=== PATIENT | male | born 1985 ===

== ENCOUNTER 2020-02-15 20:51 | Emergency (ER) | payer SELFPAY ==
[2020-02-15 20:55] VITALS: BP 133/76; PULSE 93; RESP 17; TEMP 37; O2SAT 95; BMI 52.9
--- NOTE | 2020-02-15 21:47 | W.ED.GENADLT ---
HPI - General Adult General: Chief complaint: General Medical Stated complaint: leg swelling Time Seen by Provider: 02/15/20 21:47 History of Present Illness: HPI narrative: Patient is a 34-year-old male who comes to the ED with bilateral lower leg swelling. Patient said the swelling started 4 days ago on Wednesday. The day before patient was floating on the river but denies any injury or trauma. Patient describes pain is in aching pain in both legs, but right leg is a little more painful. Pain rated an 8 out of 10. Denies any itching to skin or recent bug bite. Denies any history of blood clots. Associated symptoms: Deny chest pain, dyspnea, headache(s), nausea, rash, palpitations or vomiting Review of Systems Const: Denies: fever(s), chills or fatigue Eyes: Denies: change in vision or eye discomfort ENMT: Denies: throat pain, odynophagia, nasal discharge or nasal congestion Card: Denies: chest pain, palpitations, edema, swelling of feet/ankles, dyspnea on exertion or orthopnea Resp: Denies: dyspnea, productive cough or non-productive cough GI: Denies: abdominal pain, nausea, vomiting, diarrhea, constipation or hematochezia : Denies: flank pain, difficulty urinating, dysuria or hematuria Musc: Reports: extremity pain (bilateral leg pain) and extremity swelling (bilateral leg swelling); Denies: neck pain or back pain Skin/Breast: Denies: rash or new lesions Neuro: Denies: headache(s), numbness in extremities or weakness in extremities Physical Exam Const: COMMON NORMALS: no acute distress, patient oriented x3 and alert GENERAL APPEARANCE: cooperative and comfortable NUTRITIONAL APPEARANCE: obese morbidly obese HENMT: COMMON NORMALS: normocephalic HEAD & SCALP: normocephalic MOUTH: Normal oral and palatal mucosa present THROAT: posterior oropharynx normal and uvula midline Neck/C-Spine: COMMON NORMALS: supple GENERAL: Yes normal visual inspection Resp: COMMON NORMALS: normal respiratory effort, No retractions, No use of accessory muscles and clear to auscultation bilaterally AUSCULTATION: clear to auscultation bilaterally Cardio: COMMON NORMALS: regular rate, regular rhythm, S1 normal heart sound present, S2 normal heart sound present, No gallops present (Cardio), No clicks present (Cardio), No murmurs present (Cardio) and Peripheral pulses 2+ throughout RATE: regular rate RHYTHM: regular rhythm HEART SOUNDS: S1 normal heart sound present and S2 normal heart sound present PERIPHERAL PULSES: Peripheral pulses 2+ throughout GI: COMMON NORMALS: Normal to inspection, nondistended, normoactive bowel sounds present, Soft to palpation, non-tender and no masses INSPECTION: Yes central obesity PALPATION: Yes Soft to palpation : COMMON NORMALS: Yes no CVA tenderness BLADDER/KIDNEY EXAM: Yes no CVA tenderness Back/Pelvis: COMMON NORMALS: no CVA tenderness Extremity: NARRATIVE EXTREMITY EXAM: Patient has bilateral lower extremity edema that is pitting and rated 1+. Patient has some tenderness over mid left on both legs. No erythema or warmth seen. Patient has multiple varicose veins on both lower extremities. Neuro: COMMON NORMALS: patient oriented x3 and moves all extremities SENSORIUM/ORIENTATION: Yes alert GAIT: Yes Normal gait present Skin: COMMON NORMALS: no rashes or lesions noted GENERAL SKIN EXAM: no rashes or lesions noted and dry skin Course Vital Signs: Vital signs: Vital Signs Temperature 98.6 F 02/15/20 20:55 Pulse Rate 77 02/15/20 23:21 Respiratory Rate 18 02/15/20 23:21 Blood Pressure 125/82 02/15/20 23:21 Pulse Oximetry 99 02/15/20 23:21 MDM - General Adult MDM Narrative: Medical decision making narrative: Patient is a 34-year-old male who comes to the ED with bilateral lower extremity edema. Physical exam shows 1+ pitting edema bilaterally with some tenderness upon palpation on the calves bilaterally. No warmth or erythema seen. Multiple varicose veins on both right and left lower extremity seen. Ultrasound of the venous duplex lower extremities bilaterally showed no DVTs or blood clots. Patient diagnosed with bilateral lower extremity edema and varicose veins of both lower extremities with pain. Patient told to elevate lower extremities and to use compression stockings help with edema. Follow-up with PCP in 5 to 7 days for reevaluation. Return to ED precautions given. Patient understood agree with plan. Imaging Data^: US Vascular: Attestation: I personally reviewed and interpreted this imaging study as follows: Radiologist's impression: Ultrasound venous duplex of lower extremities bilaterally?prelim report showed no DVTs or blood clots seen. Discharge Plan Discharge Patient Disposition: Home Clinical Impression: Bilateral lower extremity edema, Varicose veins of both lower extremities with pain Condition: Stable Discharge Orders: Discharge Order (Routine); Ordered 02/15/20 Ordered By: Luis Felipe Loco Discharge Diet: Regular Discharge Activity: Resume usual activity Patient Instructions: Varicose Veins (ED), Leg Edema (ED) Activity Restrictions/Additional Instructions: Follow-up with medical provider as directed in 5-7 days. Continue taking home medications as prescribed. Wear compression stockings and elevate legs to help with swelling. Return to the ER or your medical provider if condition worsens. Please read and understand discharge instructions. If any questions, please ask. Discharge Date/Time: 02/15/20 23:33 Coding Level of Care Code ED Chronic Care Nurse for Chg Fwd Exam Comprehensive
--- NOTE | 2020-02-15 22:10 | USCV_ITS ---
MartínezRaphael Age: 34 Gender: M : 1985 Exam Date: 02/15/2020 22:30 Ordering Phys: Luis Felipe Loco Technologist: Wesley Salmon Exam Location: [facility] [place] Indication: SWELLING HISTORY: Lower extremity swelling. PROCEDURES: The venous duplex Doppler examination of both lower extremities was performed in the standard fashion. The following venous structures were evaluated: common femoral vein, profunda vein, proximal portion of the greater saphenous vein, superficial femoral vein, and the popliteal vein. Bilaterally, the common femoral, superficial femoral, profunda femoral, popliteal, posterior tibial, greater saphenous veins, and the peroneal trunk were identified and interrogated in the standard fashion. These veins were found to be easily compressible with spontaneous blood flow. No evidence of insufficiency or thrombus noted. FINDINGS: Normal 2-D Doppler and augmentation and compressibility throughout the lower extremity venous structures. Additional imaging through the proximal calf veins also reveals no thrombus. Limited evaluation of the greater saphenous vein is patent with no thrombus.. CONCLUSIONS No evidence of DVT in the above-mentioned identifiable veins. Dr Paulino Iglesias MD [facility] (Electronically Signed) Final Date: 17 February 2020 09:08 S
[2020-02-15] MEDS: ketorolac 60 mg/2 mL INJ IM (22:45)
[2020-02-15] MEDS: FUROsemide 40 mg Tablet 20 MG PO (23:19)
[2020-02-15 23:21] VITALS: BP 125/82; PULSE 77; RESP 18; O2SAT 99
== END 2020-02-15 23:33 | disposition home or self-care (01) ==
PROVIDERS: Emergency Provider Physician Assistant
DX: I83.813 Varicose veins of bilateral lower extremities with pain (principal)
CPT/HCPCS: 12345; 93970; 96372; 99281; 99283; J1885

== ENCOUNTER 2020-02-22 20:56 | Emergency (ER) | payer SELFPAY ==
[2020-02-22 21:26] LABS: Basophils # 0.1 10^3/uL (0.0-0.1); Basophils % 0.5 %; Eosinophils # 0.3 10^3/uL (0.0-0.8); Eosinophils % 2.3 %; Hematocrit 39.2 % (42.0-52.0); Hemoglobin 12.3 g/dL (11.7-16.6); Lymphocytes # 2.1 10^3/uL (0.8-4.8); Mean Corpuscular HGB Conc 31.4 g/dL (30.0-36.0); Mean Corpuscular Hemoglobin 29.9 pg (28.0-34.0); Mean Corpuscular Volume 95.4 fL (80-94); Mean Platelet Volume 9.7 fL (7.4-10.4); Monocytes # 0.8 10^3/uL (0.2-0.9); Monocytes % 6.6 %; Neutrophils # 8.34 10^3/uL (1.8-7.7); Neutrophils % 72.3 %; Nucleated Red Blood Cells % 0 %; Platelet Count 258 10^3/cmm (130-400); Red Blood Count 4.11 10^6/uL (4.1-5.3); Red Cell Distribution Width 14.6 % (12.1-15.1); White Blood Count 11.6 10^3/uL (4.0-10.0)
[2020-02-22 21:32] VITALS: BP 144/79; PULSE 89; RESP 14; TEMP 36.8; O2SAT 96; BMI 51.5
[2020-02-22 21:56] LABS: Alanine Aminotransferase 39 U/L (0-41); Albumin Level 4.1 g/dL (3.5-5.2); Alkaline Phosphatase 57 IU/L (40-130); Anion Gap 12.9 (5-19); Aspartate Amino Transferase 39 U/L (0-40); Blood Urea Nitrogen 9 mg/dL (6-20); Calcium 9.5 mg/dL (8.5-10.5); Carbon Dioxide 26 mmol/L (22-29); Chloride 105 mmol/L (98-107); Globulin 3.3 g/dL (1.3-4.6); Glucose 122 mg/dL (65-115); NT Pro B Type Natriuretic Pept 161 pg/mL (0-125); Osmolality Calculated 287 mOsm/kg (285-295); Potassium 3.9 mmol/L (3.5-5.1); Sodium 140 mmol/L (136-145); Total Bilirubin 0.3 mg/dL (0.15-1.2); Total Protein 7.4 g/dL (6.6-8.7)
--- NOTE | 2020-02-22 22:10 | ED_ITS ---
HPI - Extremity Problem General: Chief complaint: Extremity Problem,Nontraumatic Stated complaint: LEG SWELLING Time Seen by Provider: 02/22/20 22:07 Source: patient Mode of arrival: ambulatory Limitations: no limitations History of Present Illness: HPI Narrative: 34-year-old male patient comes in today with complaints of bilateral lower extremity swelling. Patient had gone on a canoe trip on 09 February and since then he has had swelling in his lower extremities bilaterally. Patient reports that he has been unable to get the swelling off his legs. Patient was evaluated in the emergency room on the and was cleared of any DVT. Patient appears well. Patient does report some mild shortness of breath but reports he also has asthma and this is common for him. Patient is obese. Bilateral lower extremities are edematous with some weeping of the skin. Review of Systems General: Reports: 10 or more systems reviewed and unremarkable except in HPI and below Musc: Reports: other (ramon lower ext edema) Physical Exam Const: COMMON NORMALS: no acute distress and patient oriented x3 GENERAL APPEARANCE: cooperative HENMT: COMMON NORMALS: normocephalic and Normal external nose present HEAD & SCALP: normal to inspection and normocephalic NOSE: Normal external nose present MOUTH: Normal oral and palatal mucosa present Eye: GENERAL EYE: appearance normal, both eyes and all related structures Neck/C-Spine: COMMON NORMALS: full ROM Chest: COMMONS NORMALS: normal inspection of the chest Resp: COMMON NORMALS: normal respiratory effort EFFORT & INSPECTION: Yes able to speak in complete sentences Cardio: COMMON NORMALS: regular rate and regular rhythm RATE: regular rate RHYTHM: regular rhythm GI: COMMON NORMALS: non-tender Back/Pelvis: COMMON NORMALS: thoracic and lumbar spine normal to inspection Extremity: COMMON NORMALS: normal to inspection Neuro: COMMON NORMALS: patient oriented x3 and moves all extremities Psych: COMMON NORMALS: mental status grossly normal and cooperative Skin: NARRATIVE SKIN EXAM: Redness to bilateral lower extremities, some clear field vesicles of different stages some open and weeping. Course Vital Signs: Vital signs: Vital Signs Temperature 98.2 F 02/22/20 21:32 Pulse Rate 89 02/22/20 21:32 Respiratory Rate 14 02/22/20 21:32 Blood Pressure 144/79 02/22/20 21:32 Pulse Oximetry 98 02/22/20 23:21 MDM - Extremity (Nontraumatic) MDM Narrative: Medical decision making narrative: Patient comes in today with complaints of bilateral lower extremity swelling. Patient's had increased swelling since being on the river [place] back [place] 09 February. Patient has been unable to get the swelling under control and reduced. Patient is also concerned for secondary cellulitis due to some redness and weeping from the legs. Exam notes bilateral lower extremity edema with mild redness. Patient does have some vesicle lesions that are draining and weeping. Vital signs are normal except for some mild elevated blood pressure. Differential diagnosis includes but not limited to CHF, hypertension, heat edema, peripheral insufficiency, DVTs. D- dimer was positive for at 1.0. CBC and CMP were unremarkable. BNP was 169. Chest x-ray noted some increased venous congestion but no significant effusion or infiltrates noted. Bilateral venous Doppler studies noted no DVT. Reviewed exam with patient recommended treatment with diuretic for the next 10 days and venous compression with stockings or elastic bandages. Patient reports understanding of care plan and need for follow-up. Lab Data: Labs: Lab Results 02/22/20 02/22/20 02/22/20 Range/Units 21:13 21:13 21:13 WBC 11.6 H (4.0-10.0) 10^3/ uL RBC 4.11 (4.1-5.3) 10^6/u L Hgb 12.3 (11.7-16.6) g/dL Hct 39.2 L (42.0-52.0) % MCV 95.4 H (80-94) fL MCH 29.9 (28.0-34.0) pg MCHC 31.4 (30.0-36.0) g/dL RDW 14.6 (12.1-15.1) % Plt Count 258 (130-400) 10^3/c mm MPV 9.7 (7.4-10.4) fL Neut % (Auto) 72.3 % Lymph % (Auto) 18.0 % Clinton % (Auto) 6.6 % Eos % (Auto) 2.3 % Baso % (Auto) 0.5 % Neut # (Auto) 8.34 H (1.8-7.7) 10^3/u L Lymph # (Auto) 2.1 (0.8-4.8) 10^3/u L Clinton # (Auto) 0.8 (0.2-0.9) 10^3/u L Eos # (Auto) 0.3 (0.0-0.8) 10^3/u L Baso # (Auto) 0.1 (0.0-0.1) 10^3/u L Nucleated RBC % (a uto) 0 % Nucleated RBCs # 0.0 /100WBC D-Dimer 1.00 H (0-0.59) ug/mIFE U Sodium 140 (136-145) mmol/L Potassium 3.9 (3.5-5.1) mmol/L Chloride 105 (98-107) mmol/L Carbon Dioxide 26 (22-29) mmol/L Anion Gap 12.9 (5-19) BUN 9 (6-20) mg/dL Creatinine 1.0 (0.7-1.2) mg/dL GFR Calculation 85.0 L (90-130) mL/min Glucose 122 H (65-115) mg/dL Calculated Osmolal ity 287 (285-295) mOsm/k g Calcium 9.5 (8.5-10.5) mg/dL Total Bilirubin 0.3 (0.15-1.2) mg/dL AST 39 (0-40) U/L ALT 39 (0-41) U/L Alkaline Phosphata se 57 (40-130) IU/L NT-Pro-B Natriuret Pep 161 H (0-125) pg/mL Total Protein 7.4 (6.6-8.7) g/dL Albumin 4.1 (3.5-5.2) g/dL Globulin 3.3 (1.3-4.6) g/dL Imaging Data^: CXR: Attestation: I personally reviewed and interpreted this imaging study as follows: (Mild vascular congestion, multiple granulomas, no localized infiltrate.) EKG Data^: EKG 1: Attestation: I personally reviewed and interpreted this EKG as follows: (2315, sinus rhythm with a regular rate at 80 bpm. No ectopy, no ST elevation, first- degree AV block is noted. No previous one is available.) Discharge Plan Discharge Patient Disposition: Home Clinical Impression: Edema of both lower extremities due to peripheral venous insufficiency Cellulitis Qualifiers: Site of cellulitis: extremity Site of cellulitis of extremity: lower extremity Laterality: unspecified laterality Qualified Code(s): L03.119 - Cellulitis of unspecified part of limb Condition: Stable Prescriptions: New cephalexin 500 mg capsule 500 mg PO Q8H 10 Days Qty: 30 RF: 0 furosemide 40 mg tablet 40 mg PO DAILY Qty: 10 RF: 0 potassium chloride 20 mEq tablet extended release 20 meq PO DAILY Qty: 10 RF: 0 Discharge Orders: Discharge Order (Routine); Ordered 02/23/20 Ordered By: Michel Wolfe Discharge Diet: Usual diet Discharge Activity: Increase activity as tolerated Patient Instructions: Peripheral Vascular Disorders (ED) Activity Restrictions/Additional Instructions: Activity as tolerated. When sitting try to elevate legs as much as possible. Use diuretic furosemide once daily in the morning. Take potassium chloride once daily with a meal. Take cephalexin 3 times a day for concerns of infection. Follow-up with primary care in 1 week for recheck. Return to the emergency department for new concerns. Stand Alone Forms: Work/School Release Coding Level of Care Code ED Acquisition Analyst for Matt Powell Exam Comprehensive
--- NOTE | 2020-02-22 22:17 | XRR_ITS ---
PROCEDURE INFORMATION: Exam: XR Chest, 1 View Exam date and time: 02/22/2020 10:35 PM Age: 34 years old Clinical indication: Shortness of breath TECHNIQUE: Imaging protocol: XR of the chest Views: 1 view. COMPARISON: No relevant prior studies available. FINDINGS: Lungs: Unremarkable. No consolidation. Pleural space: Unremarkable. No pleural effusion. No pneumothorax. Heart/Mediastinum: Unremarkable. No cardiomegaly. Bones/joints: Unremarkable. XR/XR chest 1V portable [id number] IMPRESSION: No acute findings.
--- NOTE | 2020-02-22 22:17 | ECG_ITS ---
[facility] Test Date: 2020-02-22 Pat Name: Raphael Martínez Department: Room: Gender: Male Zinc Plater: : 1985 Requested By: Michel Mead Order Number: [id number] Gabino MD: Robinson Major M.D. Measurements Intervals [place] Rate: 80 P: 55 NE: 235 QRS: 78 QRSD: 96 T: 48 QT: 377 QTc: 436 Interpretive Statements SINUS RHYTHM WITH FIRST DEGREE AV BLOCK No previous ECG available for comparison Electronically Signed On 02-23-2020 18:16:54 CDT by Robinson Major M.D. [id number]
--- NOTE | 2020-02-22 22:20 | USCV_ITS ---
Raphael Martínez Age: 34 Gender: M : 1985 Exam Date: 02/22/2020 23:47 Ordering Phys: Michel Wolfe Technologist: Wesley Salmon [place] [facility] [place] Indication: BILAT EDEMA HISTORY: Lower extremity swelling. PROCEDURES: The venous duplex Doppler examination of both lower extremities was performed in the standard fashion. Venous duplex imaging was performed in bilateral lower extremities. Bilaterally, the common femoral, superficial femoral, profunda femoral, popliteal, posterior tibial, greater saphenous veins, and the peroneal trunk were identified and interrogated in the standard fashion. FINDINGS: Normal 2-D Doppler and augmentation and compressibility throughout the lower extremity venous structures. Additional imaging through the proximal calf veins also reveals no thrombus. Limited evaluation of the greater saphenous vein is patent with no thrombus. CONCLUSIONS No DVT bilateral lower extremities. Dr. Pat Mitchell DO (Electronically Signed) Final Date: 23 February 2020 08:25 S
[2020-02-22] MEDS: FUROsemide 10 mg/mL SDV 4mL 40 MG IVP (22:49)
[2020-02-22] MEDS: potassium chloride ER 10 mEq Tablet PO (22:49)
[2020-02-22] MEDS: ketorolac 30 mg/mL INJ 15 MG IVP (23:06)
[2020-02-22 23:21] VITALS: O2SAT 98
[2020-02-23] MEDS: cephALEXin 500 mg Capsule PO (00:16)
[2020-02-23] MEDS: potassium chloride ER 10 mEq Tablet PO (00:18)
[2020-02-23] MEDS: FUROsemide 40 mg Tablet PO (00:18)
[2020-02-23 00:25] VITALS: BP 143/70; PULSE 88; RESP 18; O2SAT 99
== END 2020-02-23 00:34 | disposition home or self-care (01) ==
PROVIDERS: Emergency Provider Nurse Practitioner Family
DX: L03.119 Cellulitis of unspecified part of limb (principal); I87.2 Venous insufficiency (chronic) (peripheral)
CPT/HCPCS: 12345; 71045; 80053; 83880; 85025; 85378; 93005; 93010; 93970; 96374; 96375; 99282; 99284; J1885; J1940